=== PATIENT | male | born 1965 | race Caucasian/White ===

== ENCOUNTER 2016-09-14 13:07 | Inpatient (IN) | payer OTHER ==
[~2016-09-14] VITALS: Ht 182.9 cm; Wt 108.3 kg
--- NOTE | ~2016-09-14 | DS ---
PATIENT'S NAME: SUZIE [facility] AGE: 51 Y [address] 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 Well-fixed acetabular and femoral components. SECONDARY DIAGNOSES: No significant secondary diagnoses. PROCEDURE PERFORMED: Revision, right total hip arthroplasty (exchange of femoral head and acetabular liner with debridement and bone grafting of pelvic osteolytic defect). HISTORY: The patient is a 51-year-old male, who presents with a chief complaint of chronic progressive right hip pain after undergoing a primary right total hip arthroplasty with Dr. Matty Yousif at the [facility] in the early . The patient decided to proceed with revision of hip replacement after being thoroughly counseled regarding the risks, benefits, limitations, and alternatives. Please refer to his outpatient clinic notes and his admission history and physical. HOSPITAL COURSE: The patient underwent the above specified procedure on September 16, 2016, without complications. General endotracheal anesthesia plus subcutaneous and periarticular local anesthesia was utilized. He received 72 hours of perioperative prophylactic antibiotics. Antibiotics were discontinued on postop day #3 when cultures of synovial fluid taken at the time of surgery were negative. He remained hemodynamically stable and neurovascularly intact throughout his entire hospital course. His postoperative deep venous thrombosis prophylaxis consisted of Xarelto, early mobilization, and pneumatic compression devices. He received daily physical therapy for gait training, transfer training, and reinforcement of hip dislocation precautions and progressed well in physical therapy. On his date of discharge, the incision at the hip was healing well and showed no signs of infection. DISPOSITION: Home. DISCHARGE DIET: Regular. DISCHARGE ACTIVITY: He is full weightbearing as tolerated. There is to be strict posterior hip dislocation precautions. He is to notify Dr. Guevara immediately if he experiences any increased pain, fevers, chills, erythema, or PATIENT'S NAME: SUZIE [facility]SON [facility] AGE: 51 Y [address] ROOM: [address] [address] LOC[place]: [facility] [place] DATE: 09/16/2016 Discharge Summary DISCHARGE DATE: 09/18/2016 FAMILY PHYSICIAN: Beth Huynh APRN ATTENDING PHYSICIAN: Maxine Guevara. There is to be no dressing changes. DISCHARGE MEDICATIONS: Include, 1. Tramadol 50 mg, take 1 tablet p.o. every 6 hours as needed for pain. 2. Tramadol extended release 24-hour 200 mg, take 1 tablet p.o. every day for pain. 3. Xarelto 10 mg, take 1 tablet p.o. daily for DVT prevention. He has been instructed to continue all other preadmission medications as instructed by his internal medicine physician. FOLLOWUP: Followup is to be with Dr. Guevara in 1 week subsequent to dismissal from the hospital for his initial postoperative evaluation. MARVEL LEO FOR MAXINE GUEVARA MD TLB/modl /[id number] d: 09/28/16 0841 t: 10/10/16 0810, DISCHARGE SUMMARY
--- NOTE | ~2016-09-14 | OR ---
PATIENT'S NAME: SUZIE [facility] AGE: 51 Y [address] ROOM: [place] [address] LOCATION: [facility] ADMIT DATE: 09/16/2016 OR/Procedure Report DISCHARGE DATE: FAMILY PHYSICIAN: TATO SMITH APRN ATTENDING PHYSICIAN: MAXINE GUEVARA SURGEON: Maxine Guevara MD ADMINISTRATIVE PROGRAM SPECIALIST: 1. Maxine Bahena 2. Rc. 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 Well-fixed acetabular and femoral components. 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 Well-fixed acetabular and femoral components. PROCEDURE PERFORMED: Revision right total hip arthroplasty (exchange of femoral head and acetabular liner with debridement and bone grafting of pelvic osteolytic defect). ANESTHESIA: General endotracheal anesthesia plus subcutaneous and periarticular local anesthesia (ropivacaine with epinephrine). DRAINS: None. SPECIMENS: Synovial fluid for cell count and routine cultures. EXPLANTS: Biomet 28 mm ceramic femoral head with +0 mm neck length. Biomet lipped acetabular polyethylene liner with a 28 mm inner diameter. IMPLANTS: Biomet Biolox 36 mm diameter ceramic femoral head with +6 mm neck length (+6 mm taper adaptor). Biomet ArCom XL acetabular polyethylene liner (ring lock) with 10-degree face change and 36 mm inner diameter. [place] HydroSet (15 mL and 30 mL of allograft cancellous bone chips). INDICATION FOR PROCEDURE: Mr. Russell is a 51-year-old male, who presents with progressive right hip pain and instability. His past orthopedic history is significant for having undergone a primary right total hip arthroplasty with Dr. Matty Yousif at the [facility] in the early . He has had three dislocations of his right hip and has been experiencing frequent subluxation events. His first dislocation occurred as he was leaving the hospital. Preoperative radiographs demonstrate extensive linear wear of the acetabular polyethylene liner and extensive osteolysis PATIENT'S NAME: SUZIE [facility] AGE: 51 Y [address] ROOM: [place] [address] LOCATION: [facility] ADMIT DATE: 09/16/2016 OR/Procedure Report DISCHARGE DATE: FAMILY PHYSICIAN: TATO SMITH APRN ATTENDING PHYSICIAN: MAXINE GUEVARA medial to the acetabular component. His past orthopedic history is also significant for having undergone a primary left total hip arthroplasty and a revision left total hip arthroplasty. Risks, benefits, limitations, and alternatives to revision total hip arthroplasty have been thoroughly reviewed, and informed consent has been granted. We have specifically reviewed risks and implications of infection, deep venous thrombosis, pulmonary embolism, mortality, neurovascular complications, blood transfusion risks, risks associated with allograft bone, as well as concerns regarding durability (given the fact that he is still quite young and active). I have told the patient to anticipate some degree of lengthening of his limb in order to address the anticipated capsular laxity and decrease his chance for recurrent instability events. He understands that he will need to be hypervigilant regarding dislocation precautions in any event. Informed consent granted. DESCRIPTION OF PROCEDURE: The patient was placed in a left lateral decubitus position, after administration of general endotracheal anesthesia and prophylactic antibiotics. His pelvis was locked perpendicularly to the floor on a pegboard. An axillary roll was placed and the left leg was well padded. The right hip was prepped and draped with vigilant sterile technique. He had a well-healed direct lateral longitudinal incision. This was not in a position for an ideal posterolateral extensile approach. Thus, I made the incision slightly posterior to the preexisting scar. Sharp dissection proceeded down to the iliotibial band and gluteus ahsan fascia which were divided in line with the overlying skin incision. There was an attenuated intact posterior pseudocapsule. The sciatic nerve was identified and vigilantly protected throughout the entire case. The posterior pseudocapsule was divided. There was a large amount of benign-appearing translucent synovial fluid. This was sent for cell count and Gram stain. There was no purulence. There was an abundant amount of proliferative stanley colored synovitis (consistent with polyethylene wear). An extensive synovectomy was performed. The femoral head was removed from the trunnion and the trunnion was mobilized anterosuperiorly to the acetabulum. An extensive synovectomy was performed. A large contained osteolytic defect was noted inferomedially to the acetabular shell. This contained a large amount of mucinous fluid and extended approximately 3 cm into the symphysis pubis. An abundant amount of osteolytic amorphous tissue was visualized through the three acetabular shell dome screw holes. A thin adaptor for the enModus pulsatile lavage system was placed through each of the screw holes and utilized to irrigate the osteolytic debris. Multiple large fragments of amorphous tissue were extracted. These flowed readily from the medial aspect of the ilium (deep to the shell) out the inferomedial lytic defect. After confirming that we could achieve acceptable stability with the revision construct, I packed 30 mL of cancellous allograft PATIENT'S NAME: SUZIE [facility] AGE: 51 Y [address] ROOM: [place] [address] LOCATION: [facility] ADMIT DATE: 09/16/2016 OR/Procedure Report DISCHARGE DATE: FAMILY PHYSICIAN: TATO SMITH APRN ATTENDING PHYSICIAN: MAXINE GUEVARA and 15 mL of HydroSet through the screw holes. Of note, the 3 dome screw holes had been oriented at the inferior medial aspect of the acetabular shell at the time of the primary arthroplasty. The primary acetabular component was confirmed to be well-fixed. It was somewhat horizontally oriented and in a relative neutral version. However, a trial reduction with the 10 degree, 36 mm diameter liner demonstrated acceptable stability. The femoral component was confirmed to be well fixed as well. There were no significant lytic defects at the femoral interface. The ring of the ring lock acetabular polyethylene locking mechanism was in good condition. The new acetabular liner was impacted into position with the elevation centered at the 8:30 position The trunnion was thoroughly irrigated and dried prior to impacting the final femoral head and taper adaptor into position. A final reduction was performed. After the final reduction, the hip could not be anteriorly subluxated with firm external rotation in full extension and 0 degrees of abduction. In neutral rotation and 0 degrees of abduction, the hip could be hyperflexed to 130 degrees without instability. At 90 degrees of flexion and 0 degrees of abduction, the hip could be internally rotated to 45 degrees before there was posterior subluxation. Hemostasis was excellent throughout the entire case. The entire incision and joint space were thoroughly irrigated with bacteriostatic pulsatile saline lavage at this point as well as several times throughout the case. No visible remnants of the short external rotators were encountered during the approach, but there was some residual attenuated posterior pseudocapsule, which I repaired to the posterior aspect of the gluteus medius tendon and posterior aspect of the greater trochanter with #1 Vicryl sutures. The fascia was closed with multiple simple interrupted and [id number] interrupted #1 Ethibond and #1 Vicryl sutures. Subcutaneous tissues were thoroughly irrigated and subsequently reapproximated with simple deep interrupted 0 Vicryl sutures followed by superficial buried interrupted 2-0 Vicryl sutures, followed by a running subcuticular 3-0 Monocryl suture, followed by Dermabond, and followed by Steri-Strips with benzoin. The dressing consisted of an occlusive Mepilex dressing. There were no complications. The patient was extubated and transported to the Postanesthesia Care Unit in stable, comfortable condition. PATIENT'S NAME: SUZIE [facility] AGE: 51 Y [address] ROOM: [place] [address] LOCATION: [facility] ADMIT DATE: 09/16/2016 OR/Procedure Report DISCHARGE DATE: FAMILY PHYSICIAN: TATO SMITH APRN ATTENDING PHYSICIAN: MAXINE GUEVARA MD EVELYN MATOS/gabrielle /[id number] d: 09/16/161499 t: 10/06/162033, OPERATIVE SUMMARY
[2016-09-14] MEDS ORDERED: LYRICA 75MG CAP75 MG PO (13:32)
[2016-09-14] MEDS ORDERED: TRAMADOL HCL E200 MG PO (13:33)
[2016-09-14] MEDS ORDERED: ASPIRIN EC81 MG PO (13:34)
[2016-09-14] MEDS ORDERED: TRAMADOL HCL50 MG PO (13:34)
[2016-09-14] MEDS ORDERED: TYLENOL325 MG PO (13:35)
[2016-09-17 05:14] LABS: HEMOGLOBIN 11.9 g/dL (12.0-17.0)
[2016-09-18] MEDS ORDERED: XARELTO10 MG PO (12:58)
[2016-09-18] MEDS ORDERED: DILAUDID 2MG(HYD2 MG PO (13:02)
== END 2016-09-18 14:30 | disposition disaster alternative care site (69) | DRG 468 ==
LOC: GPOC 13:07 → EDSTATUS 09-16 → GMSU 09-16 05:29 → G3N 09-16 05:29 → GMSU 09-16 13:30
PROVIDERS: ADMIT Orthopaedic Surgery
PROC: 0SP909Z Removal of Liner from Right Hip Joint, Open Approach (ICD-10-PCS; principal; 2016-09-16)
PROC: 0SPR0JZ Removal of Synthetic Substitute from Right Hip Joint, Femoral Surface, Open Approach (ICD-10-PCS; principal; 2016-09-16)
PROC: 0SRR03Z Replacement of Right Hip Joint, Femoral Surface with Ceramic Synthetic Substitute, Open Approach (ICD-10-PCS; principal; 2016-09-16)
PROC: 0QU Lower Bones, Supplement (ICD-10-PCS; principal; 2016-09-16)
PROC: 0SUA09Z Supplement Right Hip Joint, Acetabular Surface with Liner, Open Approach (ICD-10-PCS; principal; 2016-09-16)
DX: T84.060A Wear of articular bearing surface of internal prosthetic right hip joint, initial encounter (principal); T84.050A Periprosthetic osteolysis of internal prosthetic right hip joint, initial encounter; M65.9 Synovitis and tenosynovitis, unspecified; M89.551 Osteolysis, right thigh; E66.01 Morbid (severe) obesity due to excess calories; Z68.32 Body mass index [BMI] 32.0-32.9, adult
CPT/HCPCS: C1776; J0690; J1100; J1885; J2250; J2405; J2795; J7030; J7120